=== PATIENT | male | born 1975 | race Caucasian/White ===

== ENCOUNTER 2020-04-28 14:02 | Emergency (ER) | payer OTHER, MEDICAID, SELFPAY ==
[2020-04-28 14:09] VITALS: BP 168/95; PULSE 93; RESP 14; TEMP 37; O2SAT 99; BMI 32.4
--- NOTE | 2020-04-28 14:11 | ED_ITS ---
HPI - General Adult General Chief complaint: Eye Problems Stated complaint: something in right eye since last night Time Seen by Provider: 04/28/20 14:03 Source: patient Mode of arrival: Ambulatory Limitations: no limitations History of Present Illness HPI narrative: Patient is a 44-year-old male here for evaluation of what he thinks is a foreign body to his right eye. He states that last evening he got a piece of wood in his eye after some when he was with was using a chain saw. He did state that he was able to get a ?black piece ?on the inside of his eye last night however he has continued head pain. He has had no prior eye surgeries. Does not were glasses or contacts. Did see his primary doctor who thought that there was a ?bump? on his eye so he sent to the emergency department for evaluation Related Data Previous Rx's Medication Instructions Recorded gabapentin [Neurontin] 0 PO HS #60 cap 09/25/16 duloxetine [Cymbalta] 30 mg PO BID #60 cap 11/13/16 hydrocodone-acetaminophen [[place]] 0 PO Q4HP PRN #12 tab 11/13/16 atorvastatin [Lipitor] 20 mg PO HS #90 tab 11/15/16 erythromycin 0.5 inch EYE-RIGHT TID #3.5 g 04/28/20 Allergies Allergy/AdvReac Type Severity Reaction Status Date / Time tramadol [TRAMADOL] AdvReac Unknown ANXIETY,AHN, Verified 04/28/20 14:31 INSOMNIA Review of Systems Constitutional Constitutional: Denies headache(s) Eyes Comments: Right eye irritation, concern for foreign body right on ENT Ears, Nose, Mouth, and Throat: Denies headache(s) and Denies sore throat Integumentary/Breasts Skin/Breast: Denies rash Neurologic Neurologic: Denies behavioral changes and Denies headache(s) Psychiatric Psychiatric: Denies behavioral changes Hematologic/Lymphatic On Anticoagulants: No Allergic/Immunologic Allergic/Immunologic: Denies urticaria Patient History Medical History Current smoker (08/31/16) Mild single current episode of major depressive disorder (11/13/16) Mixed hyperlipidemia (11/13/16) Social History Smoking Status: Current every day smoker Exam Initial Vital Signs Initial Vital Signs: Vital Signs Temperature 98.6 F 04/28/20 14:09 Pulse Rate 93 H 04/28/20 14:09 Respiratory Rate 14 04/28/20 14:09 Blood Pressure 168/95 H 04/28/20 14:09 Pulse Oximetry 99 04/28/20 14:09 Const General: cooperative, comfortable and well developed Limitations: mental status not altered HENCT Head: normal to inspection and normocephalic Nose: external nose normal Face and sinus: normal facial exam Mouth: oral mucosae normal Eyes Alignment and Position: alignment normal Eyelids: eyelids normal Cornea: corneas abnormal on the right fluorescein used and abrasion linear Pupils: PERRL EOM: EOM intact bilaterally Skin Lesions: no lesions Rashes: no rashes Extrem General: capillary refill normal Psych Appearance: grossly normal and well kempt Course Orders Ordered: Discontinued Medications Erythromycin (Erythromycin Ophth 1 Gm Oint) 1 applic EYE-RIGHT NOW ONE Stop: 04/28/20 14:24 Last Admin: 04/28/20 14:28 Dose: 1 applic Documented by: Fluorescein Sodium (Fluorescein 1 Mg Strip) 1 mg EYE-BOTH NOW ONE Stop: 04/28/20 14:04 Last Admin: 04/28/20 14:16 Dose: 1 mg Documented by: Proparacaine HCl (Proparacaine 0.5% Ophth [place]) 1 drops EYE-RIGHT NOW ONE Stop: 04/28/20 14:04 Last Admin: 04/28/20 14:16 Dose: 1 drop Documented by: Vital Signs Vital signs: Vital Signs - 8 hr 04/28/20 14:09 Temperature 98.6 F Pulse Rate 93 H Respiratory Rate 14 Blood Pressure 168/95 H Pulse Oximetry 99 Medical Decision Making MDM Narrative Medical decision making narrative: There was potentially a small foreign body in the right eye that I was easily able to remove with a cotton tip applicator. There was also a abrasion noted on the cornea. His pupil was round and equal. Low suspicion for open globe. There was no foreign body noted with eversion of the upper and lower eyelids. Low suspicion for glaucoma. He does not have a red eye. Will discharge home with erythromycin ointment and return precautions. He expressed understanding and agreement. Discharge Plan Departure Patient Disposition: Home Clinical Impression: Acute foreign body of right eye, Corneal abrasion, right Instructions: DI for Corneal Abrasion Activity Restrictions/Additional Instructions: Use the antibiotic ointment for at least the next 24 hours and longer if your symptoms persist longer. Recommend you contact your primary provider for follow-up. Return to the emergency department for any new or worsening symptoms Prescriptions: New erythromycin 5 mg/gram (0.5 %) ointment 0.5 inch EYE-RIGHT TID Qty: 3.5 RF: 0 No Action gabapentin [Neurontin] 300 MG capsule 0 PO HS Qty: 60 RF: 0 hydrocodone-acetaminophen [[place]] 5 MG/325 MG tablet 0 PO Q4HP PRNQty: 12 RF: 0 duloxetine [Cymbalta] 30 MG capsule,delayed release(DR/EC) 30 mg PO BID Qty: 60 RF: 0 atorvastatin [Lipitor] 20 MG tablet 20 mg PO HS Qty: 90 RF: 1 Referrals: Sherwin Craft MD [Primary Care Provider] -
[2020-04-28] MEDS: FLUORESCEIN 1 MG STRIP EYE-BOTH (14:16)
[2020-04-28] MEDS: PROPARACAINE 0.5% OPHTH SOL 1 DROPS EYE-RIGHT (14:16)
[2020-04-28] MEDS: ERYTHROMYCIN OPHTH 1 GM OINT 1 APPLIC EYE-RIGHT (14:28)
[2020-04-28 14:36] VITALS: BP 138/96; PULSE 78; RESP 16; O2SAT 78
== END 2020-04-28 14:38 | disposition home or self-care (01) ==
PROVIDERS: Emergency Provider Emergency Medicine; Family Provider Family Medicine; PCP Family Medicine
DX: T15.01XA Foreign body in cornea, right eye, initial encounter (principal)
CPT/HCPCS: 99281; 99282

== ENCOUNTER → 2020-07-14 12:46 | Outpatient (CLI) | payer OTHER, MEDICAID, SELFPAY ==
--- NOTE | 2020-07-14 | DI.US.S_ITS ---
PROCEDURE: US THYROID INDICATIONS: GENERALIZED LYMPH NODE ENLARGEMENT TECHNIQUE: Real-time scanning was performed of the thyroid gland, with image documentation. COMPARISON: None. FINDINGS: Right: Thyroid lobe measures 6.0 x 2.1 x 2.2 cm, and is homogeneous in echotexture. Left: Thyroid lobe measures 5.3 x 2.1 x 1.9 cm, and is homogenous in echotexture. Isthmus: 4.9 mm thick. Nodule number: 1 Location: Left mid to inferior pole Size: 0.6 x 0.4 x 0.4 cm. Composition: Cystic Echogenicity: Anechoic Shape: wider than tall. Margins: Smooth Echogenic foci: Comet tail artifact Total points: 3 ACR TI-RADS category: Mildly suspicious IMPRESSION: Mildly suspicious 6 mm cystic lesion in the left mid inferior pole. No follow-up necessary by consensus criteria below. ACR TI-RADS definitions and recommendations: TI-RADS 1 (benign): 0 points. FNA not needed. TI-RADS 2 (not suspicious): 2 points. FNA not needed. TI-RADS 3 (mildly suspicious): 3 points. * FNA if 2.5 cm or larger, follow up if 1.5 cm or larger (at 1, 3, and 5 years). TI-RADS 4 (moderately suspicious): 4-6 points. * FNA if 1.5 cm or larger, follow up if 1 cm or larger (at 1, 2, 3, and 5 years). TI-RADS 5 (highly suspicious): 7 points or more. * FNA if 1 cm or larger, follow up if 0.5 cm or larger (every year for 5 years). Dictated by: Addison Resendiz M.D. on 07/14/2020 at 17:40 Approved by: Addison Resendiz M.D. on 07/14/2020 at 17:42
== END ==
PROVIDERS: Family Provider Family Medicine; PCP Nurse Practitioner Family; Referring Provider Nurse Practitioner Family; Visit Provider Nurse Practitioner Family
DX: E04.1 Nontoxic single thyroid nodule (principal); R59.1 Generalized enlarged lymph nodes; J02.9 Acute pharyngitis, unspecified
CPT/HCPCS: 76536